=== PATIENT | male | born 1960 | race African-American/Black ===

== ENCOUNTER 2018-03-27 20:33 | Emergency (ER) | payer MEDICAID ==
[~2018-03-27] VITALS: Ht 172.7 cm; Wt 64.5 kg
[2018-03-27 20:37] VITALS: Ht 172.7 cm; Wt 64.5 kg
[2018-03-27 21:12] LABS: APPEARANCE CLEAR (CLEAR); BILIRUBIN NEGATIVE (NEGATIVE); COLOR RED (YELLOW); GLUCOSE NEGATIVE (NEGATIVE); KETONE NEGATIVE (NEGATIVE); NITRITE NEGATIVE (NEGATIVE); PROTEIN TRACE mg/dL (NEGATIVE); UROBILINOGEN NORMAL (NORMAL)
[2018-03-27 21:13] LABS: BACTERIA FEW /hpf (NONE SEEN)
[2018-03-27 21:28] LABS: BASOPHILS 0.3 % (0-2); EOSINOPHILS 2.3 % (0-7); HEMATOCRIT 41.2 % (42.0-54.0); HEMOGLOBIN 13.9 g/dL (13.5-17.5); IMMATURE GRANULOCYTES 0.2 % (0-5); LYMPHOCYTES 39.6 % (15-50); MCH 32.8 pg (26.0-34.0); MCHC 33.7 g/dL (31.0-37.0); MCV 97.2 fL (80.0-100.0); MEAN PLATELET VOLUME 10.2 fL (7.4-10.4); MONOCYTES 9.7 % (2-11); NEUTROPHILS 47.9 % (40-80); PLATELET COUNT 168 10x3/uL (130-400); RBC 4.24 10x6/uL (4.20-6.10); RDW 13.4 % (11.5-14.5); WBC 6.5 10x3/uL (4.8-10.8)
[2018-03-27 22:10] LABS: ALBUMIN 3.3 g/dL (3.4-5.0); ANION GAP 9.6 mmol/L (8-16); BILIRUBIN - TOTAL 0.31 mg/dL (0.2-1.3); CARBON DIOXIDE 26.1 mmol/L (21.0-32.0); CREATININE - SERUM 1.1 mg/dL (0.6-1.3); POTASSIUM - SERUM 3.7 mmol/L (3.5-5.1); PROTEIN - SERUM 6.7 g/dL (6.4-8.2)
[2018-03-27] MEDS ORDERED: TORADOL10 MG PO (23:11)
[2018-03-27] MEDS ORDERED: LEVAQUIN500 MG PO (23:11)
[2018-03-27 23:49] VITALS: BP 132/87
== END 2018-03-27 23:49 | disposition home or self-care (01) ==
LOC: D.ER 20:33
PROVIDERS: Family Medicine
DX: R31.9 Hematuria, unspecified (principal); N40.0 Benign prostatic hyperplasia without lower urinary tract symptoms; Z86.73 Personal history of transient ischemic attack (TIA), and cerebral infarction without residual deficits; F17.200 Nicotine dependence, unspecified, uncomplicated

== ENCOUNTER → 2018-07-01 09:34 | Outpatient (CLI) | payer MEDICAID ==
[2018-03-27 20:37] VITALS: BMI 21.6
[~2018-07-01 09:34] MED LIST: LEVAQUIN500 MG PO; TORADOL10 MG PO
[2018-07-06 08:20] LABS: HCVGENO - HEP C QUANT 274000 IU/mL (()); HCVGENO - LOG 10 5.438 (())
== END | disposition home or self-care (01) ==
LOC: D.LABREF 09:34
PROVIDERS: Radiology Radiation Oncology
DX: B18.2 Chronic viral hepatitis C (principal)

== ENCOUNTER → 2018-08-03 07:25 | Day surgery (SDC) | payer MEDICAID ==
[~2018-08-03] VITALS: Ht 172.7 cm; Wt 68.9 kg
[~2018-08-03 07:25] MED LIST changes: +CELEXA20 MG PO; +HYDROCODON-ACE1 EAC2 PO; +NAPROSYN500 MG PO; +NORCO 10-325 TA1 TAB PO; +SEROQUEL200 MG PO; +TRAMADOL HCL E100 M1 PO; +VISTARIL25 MG
[2018-08-03 07:50] VITALS: BP 132/83; Ht 172.7 cm; Wt 68.9 kg
--- NOTE | 2018-08-03 14:09 | NUR ---
1200 PT UP AND DRESSED WAITINGN ON RIDE
--- NOTE | 2018-08-06 10:37 | OP ---
PATIENT NAME: DESIREE MCCOY MEDICAL RECORD: [id number] :60 LOCATION:D.OPS ADMISSION DATE: SURGEON: TRISH MATHEW MD DATE OF OPERATION: 08/03/2018 PREOPERATIVE DIAGNOSIS: Painful hardware, left foot. POSTOPERATIVE DIAGNOSIS: Painful hardware, left foot. PROCEDURE: Removal of hardware of the left medial malleolus. SURGEON: Trish Mathew MD ANESTHESIA: General. INTRAOPERATIVE COMPLICATIONS: None. SUMMARY OF PATHOLOGIC FINDINGS: Consistent with preoperative diagnosis. One of the screws was broken and the broken portion was left in situ as discussed with the patient. The more distal aspect of the screw was obviously loose. OPERATIVE SUMMARY IN DETAIL: After obtaining the appropriate preoperative orthopedic surgery consent as well as anesthetic consultation, evaluation, and clearance, the patient was brought to the operative room and placed on the operating table in supine position after adequate general laryngeal mask airway was administered. A tourniquet was placed on the proximal aspect of the left lower extremity. Left lower extremity was then prepped and draped in a routine sterile fashion. The leg was elevated and exsanguinated, tourniquet was inflated to 350 mmHg. Incision was made over the medial malleolus, taken down at the level of the periosteum, it was very gently dissected back. Both screws were found. The more posterior of the 2 screws was the one that was broken, this had to be removed using a rongeur. It was removed and then the second screw was found and it was removed using a [employer] pile driver engineer. Having completed this, the wound was irrigated and closed with 2-0 Vicryl followed by 3-0 Prolene in interrupted fashion. Sterile dressings were applied. Tourniquet was deflated. The patient was awakened and taken to recovery room in stable condition. All final needle and sponge counts were correct. TRANSINT:[id number] Voice Confirmation ID: [id number] DOCUMENT ID: [id number] TRISH MATHEW MD at 1037 CC: [id number] DICTATION DATE: 08/04/18 1209 MEDICAL CONSULTANT: 08/04/18 1259 [facility] 08/03/18 [place] [address]
== END | disposition home or self-care (01) ==
LOC: D.OPS 07:25
DX: T84.84XA Pain due to internal orthopedic prosthetic devices, implants and grafts, initial encounter (principal); Z01.812 Encounter for preprocedural laboratory examination

== ENCOUNTER 2018-09-11 08:01 | Emergency (ER) | payer MEDICAID ==
[~2018-09-11] VITALS: Ht 172.7 cm; Wt 69.9 kg
[~2018-09-11 08:01] MED LIST changes: -HYDROCODON-ACE1 EAC2 PO
[2018-09-11 08:05] VITALS: Ht 172.7 cm; Wt 69.9 kg
[2018-09-11] MEDS ORDERED: HYDROCODON-ACE1 EAC2 PO (09:31)
[2018-09-11 09:50] VITALS: BP 140/88
== END 2018-09-11 09:50 | disposition home or self-care (01) ==
LOC: D.ER 08:01
DX: M25.561 Pain in right knee (principal); Z86.73 Personal history of transient ischemic attack (TIA), and cerebral infarction without residual deficits

== ENCOUNTER → 2018-09-15 08:04 | Outpatient (CLI) | payer MEDICAID ==
[~2018-09-15 08:04] MED LIST changes: +HYDROCODON-ACE1 EAC2 PO
== END | disposition home or self-care (01) ==
LOC: D.MRI 08:04
DX: M25.561 Pain in right knee (principal)